=== PATIENT | male | born 1990 | race Caucasian/White ===

== ENCOUNTER 2021-07-27 22:47 | Emergency (ER) | payer OTHER ==
[~2021-07-27] VITALS: Ht 182.9 cm; Wt 79.4 kg
[2021-07-28] MEDS ORDERED: SULF1TAB48 PO (00:50)
[2021-07-28] MEDS ORDERED: SULFAMETH/TRIMETH 800/160 MG TABLET PO ONE (01:00)
[2021-07-28 01:01] VITALS: BP 109/60
--- NOTE | 2021-07-28 01:01 | NUR ---
Patient discharged to home in stable condition. Written and verbal after care instructions given. Patient verbalizes understanding of instructions. Stressed follow up or return to ER for worsening s/s.
[2021-07-28] MEDS ORDERED: SULFAMETH/TRIMETH 800/160 MG TABLET ONE (01:06)
== END 2021-07-28 01:02 | disposition home or self-care (01) ==
LOC: ER 22:47
DX: L01.00 Impetigo, unspecified (principal); Z85.72 Personal history of non-Hodgkin lymphomas
CPT/HCPCS: 87070; 87077; A4663